=== PATIENT | female | born 1990 | race Two or more races ===

== ENCOUNTER 2017-09-08 14:52 | Emergency (ER) | payer OTHER ==
[~2017-09-08] VITALS: Ht 180.3 cm; Wt 62.1 kg
[2017-09-08] MEDS ORDERED: PREN1TAB81 PO (15:00)
--- NOTE | 2017-09-08 15:10 | NUR ---
DR GEORGE AT THE BEDSIDE FOR EVAL AND EXAM.
[2017-09-08 16:25] VITALS: BP 112/70
--- NOTE | 2017-09-08 16:26 | NUR ---
Patient discharged to home in stable conditon. Written and verbal after care instructions given. Patient verbalizes understanding of instructions.
== END 2017-09-08 16:26 | disposition home or self-care (01) ==
LOC: ER 14:56
DX: O20.9 Hemorrhage in early pregnancy, unspecified (principal); Z3A.15 15 weeks gestation of pregnancy
CPT/HCPCS: 36415; 76856; A4663